=== PATIENT | male | born 1960 | race Caucasian/White ===

== ENCOUNTER 2025-01-24 08:49 | Emergency (ER) | payer MEDICAID, OTHER ==
[~2025-01-24] VITALS: Ht 170.2 cm; Wt 78.2 kg
[2025-01-24] MEDS: KETOROLAC TROMETH 30 MG/ML 1ML VIAL IM ONE (10:16)
[2025-01-24] MEDS: methylPREDNISolone SOD SUCC 125 MG/2 ML VL IM ONE (10:16)
[2025-01-24] MEDS ORDERED: IBUP1TAB5 PO (10:55)
[2025-01-24] MEDS ORDERED: METH-1181 PO (10:55)
--- NOTE | 2025-01-24 10:55 | ED.PDOC ---
Back pain HPI HPI Comments This is a pleasant 64-year-old male that presents with a chief complaint of atraumatic right lower back pain that radiates down the right hip The patient reports he has been experiencing lower back pain for a week which began approximately on Friday. Patient describes the pain as moderate, rates it is exacerbated when getting up out of bed and elevating his legs. He is currently using [id number] ibuprofen with a temporary relief. Denies history of chronic steroid use or history of osteoporosis Denies history of cancer Denies fevers chills night sweats nausea vomiting unintentional weight loss Denies abdominal tearing pain Denies syncope Denies urinary changes or urinary incontinence Denies numbness tingling of the groin her inner thigh Denies previous back procedures or surgeries Chief Complaint: Back Pain Time Seen by MD: 08:59 Reviewed Notes: Nurses Notes, Medications, Allergies Allergies: Coded Allergies: NO KNOWN ALLERGIES (Unverified , 01/24/25) Home Meds Active Scripts Methocarbamol (Methocarbamol) 500 Mg Tab, 500 MG PO Q8HP PRN for 7 Days, #21 TAB 0 Refills Prov:SANTOS JEAN NP 01/24/25 Ibuprofen Micronized (Ibuprofen) 600 Mg Tab, 600 MG PO Q8HP PRN for 10 Days, #30 TAB 0 Refills Prov:SANTOS JEAN NP 01/24/25 Information Source: Patient Mode of Arrival: CRUTCHES Past Medical History PAST MEDICAL HISTORY: Denies Surgical History: Denies all surgeries Social History Smoker: Non-Smoker Alcohol: Denies ETOH Use Drugs: Denies Drug Use All Other Systems: Reviewed and Negative (Per HPI) Physical Exam General Appearance: No Apparent Distress, Normal HEENT: Normal ENT Inspection, Pharynx Normal, TMs Normal Neck: Full Range of Motion, Non-Tender, Normal, Normal Inspection Respiratory: Chest Non-Tender, Lungs Clear, No Accessory Muscle Use, No Respiratory Distress, Normal Breath Sounds Cardiovascular: No Murmur, No Gallop, Regular Rate/Rhythm Breast Exam: Deferred Gastrointestinal: No Organomegaly, Non Tender, No Pulsatile Mass, Normal Bowel Sounds, Soft Genitalia: Deferred Pelvic: Deferred Rectal: Deferred Extremities: No calf tenderness, Normal capillary refill, Normal inspection, Normal range of motion, Non-tender, No pedal edema Musculoskeletal : Extremity Location: Back (No gross abnormality. Neurovascularly sensation intact) Apperance: Normal Neurologic: Alert, quill layer II-XII nml as Tested, No Motor Deficits, Normal Affect, Normal Mood, No Sensory Deficits Cerebellar Function: Normal Reflexes: Normal Skin: Dry, Normal Color, Warm Lymphatic: No Adenopathy Was a procedure done? Was a procedure done?: No Back Pain Differential Dx Differential Diagnosis: Musculoskeletal Pain X-Ray, Labs, Meds, VS Vital Signs Date Time Temp Pulse Resp B/P (MAP) Pulse Ox O2 Delivery O2 Flow Rate FiO2 01/24/25 11:11 98.7 68 16 137/78 (97) 98 98.7 01/24/25 09:45 86 18 98 Room Air 01/24/25 09:45 97.8 86 18 149/83 (105) 98 97.8 01/24/25 08:51 97.9 112 18 166/93 97 97.9 Current Medications Medications (Trade) Dose Ordered Sig/Bear Route Start Time Stop Time Status Last Admin Methylprednisolone Sodium Succinate (Solu Medrol) 62.5 mg ONCE ONCE IM 01/24/25 10:00 01/24/25 10:01 DC 01/24/25 10:16 Ketorolac Tromethamine (Toradol Injection) 30 mg ONCE ONCE IM 01/24/25 10:00 01/24/25 10:01 DC 01/24/25 10:16 X-Ray, Labs, Meds, VS Comment I considered cauda equina, spinal cord compression, vertebral malignancy/mets, acute spinal fracture, vertebral osteomyelitis, epidural abscess, infected or obstructed kidney stone, however this is less likely as the patient does not present with lower back pain red flags symptoms such as bowel or bladder dysfunction, saddle anesthesia, paresthesia, and without any history of malignancy or recent back trauma or spinal interventions. Therefore further imaging studies such as a lumbar MRI were not indicated on today's visit. Pres entation most consistent with nonemergent musculoskeletal etiology versus nonemergent disc herniation. ED workup: Defer imaging and lab work for outpatient follow up at this time Disposition: Discharge. Strict return precautions discussed with the patient with full understanding. Supportive care advised (rest, ice, heat, NSAIDs, stretching exercises) Massage muscles with cold pack or ice for 20 minutes 4 times per day. Usually most useful if there is swelling during the first 48 hours Heating pad on the most painful area for 20 minutes to relieve muscle spasm Sleep and the most comfortable sleeping position (usually on the side with knees bent) Light stretching, no strenuous activity, avoid frequent bending, avoid carrying heavy objects Discussed possible benefits of yoga and acupuncture Return precautions discussed including Inability to walk/bear weight Paresthesia/weakness/leg pain Fecal/urinary incontinence Any worsening symptoms Time of 1ST Reevaluation: 10:54 Reevaluation 1ST: Improved Patient Education/Counseling: Diagnosis, Treatment Family Education/Counseling: Diagnosis, Treatment SEPSIS Sepsis Screen Date sepsis recognized/suspect: Jan 24, 2025 Time Sepsis recognized/suspect: 854 Recent Procedure: No On Antibiotic Therapy: No Respiratory Rate >20: No Heart Rate >90: Yes Temp<36 C (96.8 F) or >38.3 C: No SBP <90 or MAP <65 mmHG: No New Acute Mental Status Change: No Is the patient on CPAP, BIPAP,: No Physician Orders Ketorolac Injection (Toradol Injection) (01/24/25 10:00) Vital Signs Date Time Temp Pulse Resp B/P (MAP) Pulse Ox O2 Delivery O2 Flow Rate FiO2 01/24/25 11:11 98.7 68 16 137/78 (97) 98 98.7 01/24/25 09:45 86 18 98 Room Air 01/24/25 09:45 97.8 86 18 149/83 (105) 98 97.8 01/24/25 08:51 97.9 112 18 166/93 97 97.9 Departure 1 Departure Time of Disposition: 10:54 Impression: Primary Impression: Piriformis syndrome Qualified Codes: G57.01 - Lesion of sciatic nerve, right lower limb Disposition: 01 HOME / SELF CARE / HOMELESS Condition: Stable e-Prescriptions Methocarbamol (Methocarbamol) 500 Mg Tab 500 MG PO Q8HP PRN for 7 Days, #21 TAB 0 Refills Prov: SANTOS JEAN HAND PATTERN MARKER 01/24/25 Ibuprofen Micronized (Ibuprofen) 600 Mg Tab 600 MG PO Q8HP PRN for 10 Days, #30 TAB 0 Refills Prov: SANTOS JEAN HAND PATTERN MARKER 01/24/25 Critical Care Note Critical Care Time?: No Stability Stability form required: No Heart Score Heart Score: Heart Score Response (Comments) Value History N/A 0 EKG N/A 0 Age N/A 0 Risk Factors N/A 0 Troponin N/A 0 Total 0 SANTOS JEAN HAND PATTERN MARKER Jan 24, 2025 10:55
[2025-01-24 11:11] VITALS: BP 137/78; PULSE 68; RESP 16; TEMP 98.7; O2SAT 98
== END 2025-01-24 11:14 | disposition home or self-care (01) ==
LOC: ER 08:49
DX: G57.01 Lesion of sciatic nerve, right lower limb (principal); Z79.899 Other long term (current) drug therapy
CPT/HCPCS: 96372; 99284; J1885; J2919

== ENCOUNTER 2025-04-13 10:55 | Emergency (ER) | payer MEDICAID, MEDICARE ==
[~2025-04-13] VITALS: Ht 170.2 cm; Wt 98.2 kg
[~2025-04-13 10:55] MED LIST: IBUP1TAB5 PO; METH-1181 PO
[2025-04-13 10:56] VITALS: BP 150/80; PULSE 119; RESP 15; TEMP 98; O2SAT 94
--- NOTE | 2025-04-13 12:08 | DVH ---
CHEST RADIOGRAPH INDICATION: COUGH TECHNIQUE: Frontal and lateral view of the chest was obtained COMPARISON: None FINDINGS: Lines and Tubes: None Lungs: Clear Pleura: No effusion. No pneumothorax. Cardiomediastinal contours: Unremarkable Bones: Unremarkable IMPRESSION: No evidence of acute disease.
--- NOTE | 2025-04-13 13:20 | ED.PDOC ---
SOB-HPI HPI Comments A 65 YEAR OLD FEMALE PRESENTS TO THE ED WITH COMPLAINT OF COUGH. PATIENT REPORTS THAT HE HAS BEEN EXPERIENCING A COUGH FOR THE PAST YEAR, WORSENING OVER THE PAST MONTH WITH ASSOCIATED NASAL CONGESTION. PATIENT ADMITS TO CIGARETTE USE. PATIENT DENIES FEVER, CHILLS, SHORTNESS OF BREATH, CHEST PAIN, ABDOMINAL PAIN, NAUSEA, VOMITING, HEADACHE, OR OTHER COMPLAINTS. NO OTHER SYMPTOMS OR MODIFYING FACTORS AT THIS TIME. PATIENT IS ALERT, ORIENTED X 4, AND HAS STEADY GAIT. Chief Complaint: Cough Time Seen by MD: 13:08 Reviewed notes: Nurses Notes, Medications, Allergies Information Source: Patient Mode of Arrival: Ambulatory Severity: Mild Timing: Days Duration: Since onset Context: At Rest PE Risk Factors: None History of: None Prehospital treatment: None Associated Signs and Symptoms: Cough, Nasal Congestion If cough with SOB: Productive Past Medical History PAST MEDICAL HISTORY: Denies Surgical History (Other): LEFT ARTIFICIAL LEG Family History Family History: Reviewed,noncontributory to illness Social History Smoker: Cigarettes Alcohol: Denies ETOH Use Drugs: Denies Drug Use Lives In: Home Constitutional: denies: chills, diaphoresis, fatigue, fever, malaise, sweats, weakness, others EENTM: reports: nose congestion, throat pain, throat swelling; denies: blurred vision, double vision, ear bleeding, ear discharge, ear drainage, ear pain, ear ringing, eye pain, eye redness, hearing loss, mouth pain, mouth swelling, nasal discharge, nose bleeding, nose pain, photophobia, tearing, voice changes, others Respiratory: reports: cough; denies: hemoptysis, orthopnea, SOB at rest, shortness of breath, SOB with excertion, stridor, wheezing, others Cardiovascular: denies: chest pain, dizzy spells, diaphoresis, Dyspnea on exertion, edema, irregular heart beat, left arm pain, lightheadedness, palpitations, PND, syncope, others Gastrointestinal: denies: abdomen distended, abdominal pain, blood streaked bowels, constipated, diarrhea, dysphagia, difficulty swallowing, hematemesis, melena, nausea, poor appetite, poor fluid intake, rectal bleeding, rectal pain, vomiting, others Genitourinary: denies: burning, dysuria, flank pain, frequency, hematuria, incontinence, penile discharge, penile sore, pain, testicle pain, testicle swelling, urgency, others Neurological: denies: dizziness, fainting, headache, left sided numbness, left sided weakness, numbness, paresthesia, pre-existing deficit, right sided numbness, right sided weakness, seizure, speech problems, tingling, tremors, weakness, others Musculoskeletal: denies: back pain, gout, joint pain, joint swelling, muscle pain, muscle stiffness, neck pain, others Integumetry: denies: bruises, change in color, change in hair/nails, dryness, laceration, lesions, lumps, rash, wounds, others Allergic/Immunocompromised: denies: Difficulty Healing, Frequent Infections, Hives, Itching, others Hematologic/Lymphatic: denies: anemia, blood clots, easy bleeding, easy bruising, swollen glands, others Endocrine: denies: excessive hunger, excessive sweating, excessive thirst, excessive urination, flushing, intolerance to cold, intolerance to heat, unexplained weight gain, unexplained weight loss, others Psychiatric: denies: anxiety, bipolar disorder, depression, hopeless, panic disorder, schizophrenia, sleepless, suicidal, others All Other Systems: Reviewed and Negative Physical Exam General Appearance: No Apparent Distress, Normal HEENT: PERRL/EOMI, Pharyngeal Erythema (TONSILLAR SWELLING, NO EXUDATES. ), Sinuses (TENDERNESS AND NASAL CONGESTION WITH POST NASAL DRIP. TENDERNESS ON RIGHT MAXILLARY SINUSES. ), TMs Normal Neck: Full Range of Motion, Non-Tender, Normal, Normal Inspection Respiratory: Chest Non-Tender, Expiration, No Accessory Muscle Use, No Respiratory Distress, Rhonchi Cardiovascular: No Edema, No JVD, No Murmur, No Gallop, Normal Peripheral Pulses, Regular Rate/Rhythm Breast Exam: Deferred Gastrointestinal: No Organomegaly, Non Tender, No Pulsatile Mass, Normal Bowel Sounds, Soft Genitalia: Deferred Pelvic: Deferred Rectal: Deferred Extremities: No calf tenderness, Normal capillary refill, Normal inspection, Normal range of motion, Non-tender, No pedal edema Musculoskeletal : Apperance: Normal Neurologic: Alert, electromagnet crane operator II-XII nml as Tested, No Motor Deficits, Normal Affect, Normal Mood, No Sensory Deficits Cerebellar Function: Normal Reflexes: Normal Skin: Dry, Normal Color, Warm Peripheral Pulses: 2+ carotid (R), 2+ carotid (L) Lymphatic: No Adenopathy Was a procedure done? Was a procedure done?: No Differential Dx Differential Diagnosis: Bronchitis, Pneumonia, Sinusitis, Allergic Rhinitis, Pharyngitis X-Ray, Labs, Meds, VS Vital Signs Date Time Temp Pulse Resp B/P (MAP) Pulse Ox O2 Delivery O2 Flow Rate FiO2 04/13/25 10:56 98.0 119 15 150/80 94 98.0 Current Medications Medications (Trade) Dose Ordered Sig/Bear Route Start Time Stop Time Status Last Admin Ceftriaxone Sodium (Rocephin) 1,000 mg ONCE ONCE IM 04/13/25 13:30 04/13/25 13:31 DC 04/13/25 13:26 PATIENT: VICENTE GRANGERACCT: [id number]: [id number] : 1960 LOC: ER ROOM / BED: / AGE / SEX: 65 / M ADM STATUS: REG ER SERVICE 1133 ORDERING PHYSICIAN: ADDY MANZANARES PROCEDURE(s): CXR2 - CHEST TWO VIEWS ROUTINE REASON: COUGH ORDER NUMBER(s): [id number], ACCESSION NUMBER(s): [id number] CHEST RADIOGRAPH INDICATION: COUGH TECHNIQUE: Frontal and lateral view of the chest was obtained COMPARISON: None FINDINGS: Lines and Tubes: None Lungs: Clear Pleura: No effusion. No pneumothorax. Cardiomediastinal contours: Unremarkable Bones: Unremarkable IMPRESSION: No evidence of acute disease. ATED BY: CARLOS MICHAEL MD DICTATED DATE/TIME: 04/13/25 120 SIGNED BY: CARLOS MICHAEL MD SIGNED DATE/TIME: 04/13/25 120 CC: X-Ray, Labs, Meds, VS Comment EXTERNAL MEDICAL RECORDS REVIEWED: [NONE] INDEPENDENT HISTORIANS: [NONE] SOCIAL DETERMINANTS OF HEALTH: [NONE] LABS ORDERED: NONE REVIEWED AND INTERPRETED RESULTS: CHEST XR IMAGING ORDERED: CHEST XR TREATMENTS ORDERED: ROCEPHIN 1G IM PROCEDURES PERFORMED: NONE CRITICAL CARE TIME: NONE I HAVE DISCUSSED THE PATIENT WITH THE ATTENDING PHYSICIAN DR. DALY AND HE AGREES WITH THE PATIENT'S PLAN OF CARE AND DISPOSITION. BASED ON HISTORY OF PRESENT ILLNESS, AND PHYSICAL EXAM, PATIENT WILL BE DISCHARGED HOME. DISCUSSED PLAN FOR DISCHARGE HOME WITH RX [LEVAQUIN, PREDNISONE, AND PHENERGAN DM]. MEDICATION WARNINGS GIVEN. SHARED DECISION MAKING: DISCUSSED WITH PATIENT THAT THEIR WORKUP WAS NORMAL. PATIENT INSTRUCTED TO FOLLOW UP WITH PRIMARY CARE PROVIDER IN 1-2 DAYS FOR RE- EVALUATION OF SYMPTOMS. PATIENT VERBALIZES UNDERSTANDING TO RETURN TO ED FOR NEW OR WORSENING SYMPTOMS OR IF FOLLOW UP WITH PCP CANNOT BE OBTAINED. PATIENT FEELS COMFORTABLE GOING HOME AT THIS TIME. ALL QUESTIONS ADDRESSED AT TIME OF DISCHAR GE. Time of 1ST Reevaluation: 13:15 Reevaluation 1ST: Improved Patient Education/Counseling: Diagnosis, Treatment, Need For Follow Up Family Education/Counseling: Diagnosis, Treatment, Need For Follow Up Medical Screening: No EMC Exist At This Time SEPSIS Sepsis Screen Date sepsis recognized/suspect: Apr 13, 2025 Time Sepsis recognized/suspect: 1058 Recent Procedure: No On Antibiotic Therapy: No Respiratory Rate >20: No Heart Rate >90: No Temp<36 C (96.8 F) or >38.3 C: No SBP <90 or MAP <65 mmHG: No New Acute Mental Status Change: No Is the patient on CPAP, BIPAP,: No Physician Orders Chest Two Views Routine (04/13/25 11:33) Vital Signs Date Time Temp Pulse Resp B/P (MAP) Pulse Ox O2 Delivery O2 Flow Rate FiO2 04/13/25 10:56 98.0 119 15 150/80 94 98.0 Medications Medications Dose Ordered Sig/Bear Route Start Time Stop Time Status Last Admin Dose Admin Ceftriaxone Sodium 1,000 mg ONCE ONCE IM 04/13/25 13:30 04/13/25 13:31 DC 04/13/25 13:26 Departure 1 Departure Time of Disposition: 13:40 Impression: Primary Impression: Acute bronchitis Qualified Codes: J20.9 - Acute bronchitis, unspecified Additional Impressions: Acute maxillary sinusitis Qualified Codes: J01.00 - Acute maxillary sinusitis, unspecified Tonsillitis Disposition: HOME / SELF CARE / HOMELESS Condition: Stable Additional Instructions: INTERPRETED BY ME. NO ACUTE FINDINGS. NO PNEUMONIA. NO CONSOLIDATIONS. NO INFILTRATES. PENDING RADIOLOGIST REPORT. e-Prescriptions Promethazine-Dm (Promethazine Dm 6.25-15 mg/5Ml) 1 Isabel Isabel 7 ML PO TID, #180 ML Prov: ADDY MANZANARES 04/13/25 Prednisone (Prednisone) 20 Mg Tab 60 MG PO DAILY, #18 TAB Prov: ADDY MANZANARES 04/13/25 Amoxicillin & Pot Clavulanate (AUGMENTIN TABLET) 875 Mg Tb 875 MG PO BID, #20 TAB Prov: ADDY MANZANARES 04/13/25 Discharged With: Self Critical Care Note Critical Care Time?: No Stability Stability form required: No Heart Score Heart Score: Heart Score Response (Comments) Value History N/A 0 EKG N/A 0 Age N/A 0 Risk Factors N/A 0 Troponin N/A 0 Total 0 I personally scribed for ADDY MANZANARES ([email or web address]) on 04/13/25 at 13:20. Electronically submitted by Haider Hamilton ([email or web address]). ADDY MANZANARES Apr 13, 2025 13:20
[2025-04-13] MEDS: cefTRIAXone SOD 1,000 MG VL IM ONE (13:26)
[2025-04-13] MEDS ORDERED: AUG875T PO (13:37)
[2025-04-13] MEDS ORDERED: PROM1SOL4 PO (13:37)
[2025-04-13] MEDS ORDERED: PRED20TA2 PO (13:37)
== END 2025-04-13 13:55 | disposition home or self-care (01) ==
LOC: ER 10:55
DX: J20.9 Acute bronchitis, unspecified (principal); J01.00 Acute maxillary sinusitis, unspecified; J03.90 Acute tonsillitis, unspecified; F17.210 Nicotine dependence, cigarettes, uncomplicated
CPT/HCPCS: 71046; 96372; 99283; J0696